=== PATIENT | male | born 1990 | race Caucasian/White ===

== ENCOUNTER 2021-03-12 16:25 | Emergency (ER) ==
[~2021-03-12] VITALS: Ht 172.7 cm; Wt 90.0 kg
== END 2021-03-12 22:58 | disposition left against medical advice (07) ==
LOC: M ED 16:25
DX: Z53.21 Procedure and treatment not carried out due to patient leaving prior to being seen by health care provider (principal)

== ENCOUNTER 2022-04-06 10:12 | Inpatient (IN) | payer OTHER ==
[~2022-04-06] VITALS: Ht 172.7 cm; Wt 93.3 kg
[2022-04-06 11:12] LABS: HEMATOCRIT 43.3 % (42.0-52.0); HEMOGLOBIN 14.4 g/dl (13.5-17.5); MEAN CORPUSCULAR HEMOGLOBIN 29.6 pg (27.0-33.0); MEAN CORPUSCULAR HGB CONC 33.3 g/dl (32.0-36.5); MEAN CORPUSCULAR VOLUME 89.1 fl (80.0-96.0); PLATELET COUNT, AUTOMATED 331 10^3/uL (150-450); RED BLOOD COUNT 4.86 10^6/uL (4.30-6.10); WHITE BLOOD COUNT 6.7 10^3/uL (4.0-10.0)
[2022-04-06 11:37] LABS: RSV AMPLIFICATION NEGATIVE (NEGATIVE)
[2022-04-06 12:21] LABS: ALT/SGPT 27 U/L (12-78); BLOOD UREA NITROGEN 13 MG/DL (7-18); CALCIUM LEVEL 9.3 MG/DL (8.5-10.1); CARBON DIOXIDE LEVEL 26 MEQ/L (21-32); CHLORIDE LEVEL 108 MEQ/L (98-107); CREATININE FOR GFR 0.91 MG/DL (0.70-1.30); GLOMERULAR FILTRATION RATE > 60.0 (>60); GLUCOSE, FASTING 103 MG/DL (70-100); POTASSIUM SERUM 4.3 MEQ/L (3.5-5.1); SODIUM LEVEL 140 MEQ/L (136-145)
[2022-04-06 12:22] LABS: ACETAMINOPHEN LEVEL < 2.0 UG/ML (10.0-30.0); ALBUMIN 4.1 GM/DL (3.2-5.2); AMPHETAMINES LEVEL URINE NEGATIVE (NEGATIVE); BARBITURATES URINE NEGATIVE (NEGATIVE); BENZODIAZEPINES URINE NEGATIVE (NEGATIVE); BILIRUBIN,DIRECT 0.2 MG/DL (0.0-0.2); BILIRUBIN,TOTAL 0.9 MG/DL (0.2-1.0); CANNABINOIDS URINE NEGATIVE (NEGATIVE); COCAINE METABOLITE URINE NEGATIVE (NEGATIVE); ETHYL ALCOHOL (ETHANOL) < 0.003 % (0.000-0.010); METHADONE URINE NEGATIVE (NEGATIVE); OPIATES URINE NEGATIVE (NEGATIVE); PHENCYCLIDINE URINE NEGATIVE (NEGATIVE); SALICYLATE LEVEL < 1.7 MG/DL (5.0-30.0); THYROID STIMULATING HORMONE 0.678 uIU/ML (0.358-3.740); TOTAL PROTEIN 7.7 GM/DL (6.4-8.2)
[2022-04-06] MEDS ORDERED: HOME MED LIST COMPLETE! XX SCH (16:50)
[2022-04-07] MEDS ORDERED: MAALOX 30 ML SUSP *UDC PO PRN (13:30)
[2022-04-07] MEDS ORDERED: MOM 30ML SUSPENSION UDC PO PRN (13:30)
[2022-04-07] MEDS ORDERED: IBUPROFEN 400MG TAB PO PRN (13:30)
[2022-04-07] MEDS ORDERED: traZODone 50 MG TAB PO PRN (13:30)
[2022-04-07 15:43] VITALS: BP 133/80
[2022-04-08 06:52] VITALS: BP 133/79
[2022-04-08] MEDS: NICOTINE 21MG/24HR 1 EA TRANSDERMAL TD SCH ×2 (09:00→10:44)
[2022-04-08 18:18] VITALS: BP 141/75
[2022-04-09 06:27] VITALS: BP 115/68
[2022-04-09] MEDS: NICOTINE 21MG/24HR 1 EA TRANSDERMAL TD SCH (09:00)
[2022-04-09 18:41] VITALS: BP 129/68
[2022-04-10 07:20] VITALS: BP 122/79
[2022-04-10] MEDS: NICOTINE 21MG/24HR 1 EA TRANSDERMAL TD SCH (09:00)
== END 2022-04-10 10:51 | disposition home or self-care (01) | DRG 881 ==
LOC: M ED 10:12 → M ED INP 04-07 13:27 → M PSY 04-07 15:12
PROVIDERS: ADMIT Student in an Organized Health Care Education/Training Program; ATTEND Psychiatry & Neurology Psychiatry
DX: F32.A Depression, unspecified (principal); R45.851 Suicidal ideations; F43.21 Adjustment disorder with depressed mood; Z63.0 Problems in relationship with spouse or partner

== ENCOUNTER → 2022-04-22 | Outpatient (REF) | payer OTHER | LOC: M SMT 13:23 | PROVIDERS: ATTEND Urology | DX: Z30.2 Encounter for sterilization (principal) ==